=== PATIENT | male | born 1960 | race Hispanic/Latino ===

== ENCOUNTER 2018-02-28 02:00 | Emergency (ER) | payer SELFPAY ==
[2018-02-28 02:53] LABS: Absolute Neutrophil 3.7 K/uL (1.8-8.0); Basophils % 0.7 % (0-1.3); Eosinophils % 5.8 % (0-4.4); Hematocrit 39.3 % (39.6-49.0); Lymphocytes % 16.7 % (15.3-44.8); MCV 82.3 fL (80-100); MPV 7.7 fL (7.6-11.3); RBC Red Blood Cell Count 4.78 M/uL (4.33-5.43)
[2018-02-28 02:54] LABS: Protime INR 1.11
[2018-02-28 03:52] LABS: Potassium 4.2 mmol/L (3.5-5.1)
[2018-02-28 06:48] LABS: Urine Blood NEGATIVE (NEG); Urine Glucose NEGATIVE (NEG); Urine Protein NEGATIVE (NEG); Urine Specific Gravity 1.015 (1.005-1.030)
--- NOTE | 2018-02-28 07:04 | ER ---
Nurse's Notes [facility] Name: Cale Sinha Age: 57 yrs Sex: Male : 1960 Arrival Date: 02/28/2018 Time: 02:05 Bed 14 Private MD: Diagnosis: Chest pain, unspecified;Essential (primary) hypertension Presentation: 02/28 02:15 Presenting complaint: Patient states: chest pain to center of chest with nausea since ak1 2300. Transition of care: patient was not received from another setting of care. Onset of symptoms was February 27, 2018. Risk Assessment: Do you want to hurt yourself or someone else? Patient reports no desire to harm self or others. Initial Sepsis Screen: Does the patient meet any 2 criteria? No. Patient's initial sepsis screen is negative. Does the patient have a suspected source of infection? No. Patient's initial sepsis screen is negative. Care prior to arrival: None. 02:15 Method Of Arrival: Ambulatory ak1 02:15 Acuity: FLORENCIA 3 ak1 Triage Assessment: 02:17 General: Appears in no apparent distress. Behavior is calm, cooperative. Pain: ak1 Complains of pain in chest. EENT: No signs and/or symptoms were reported regarding the EENT system. Neuro: Level of Consciousness is awake, alert, obeys commands, Oriented to person, place, time, situation, Digital Printer are equal bilaterally Moves all extremities. Gait is steady, Speech is normal, Facial symmetry appears normal. Cardiovascular: Reports chest pain, nausea, Denies shortness of breath, vomiting. Respiratory: No deficits noted. GI: No signs and/or symptoms were reported involving the gastrointestinal system. : No signs and/or symptoms were reported regarding the genitourinary system. Derm: Skin is dry, Skin is pink, warm \T\ dry. Skin temperature is warm. Musculoskeletal: No signs and/or symptoms reported regarding the musculoskeletal system. Historical: - Allergies: 02:17 No Known Allergies; ak1 - Home Meds: 02:17 fenofibrate oral 145mg oral [Active]; lisinopril 10 mg Oral tab 1 tab once daily ak1 [Active]; - PMHx: 02:17 Hypertension; ak1 - PSHx: 02:17 None; ak1 - Immunization history:: Adult Immunizations unknown. - Social history:: Smoking status: Patient/guardian denies using tobacco. - Ebola Screening: : No symptoms or risks identified at this time. Screenin:19 Abuse screen: Denies threats or abuse. Denies injuries from another. Nutritional ak1 screening: No deficits noted. Tuberculosis screening: No symptoms or risk factors identified. Fall Risk None identified. Assessment: 02:18 Pain: Complains of pain in chest Pain does not radiate. Pain began 3 hours ago. ak1 02:26 General: Appears in no apparent distress. uncomfortable, Behavior is calm, cooperative, bs1 appropriate for age. Pain: Complains of pain in chest Pain does not radiate. Pain began 3 hours ago. Neuro: Level of Consciousness is awake, alert, obeys commands, Oriented to person, place, time, situation. Cardiovascular: Reports chest pain, Heart tones S1 S2 present Capillary refill < 3 seconds Patient's skin is warm and dry. Respiratory: Airway is patent Trachea midline Respiratory effort is even, unlabored, Respiratory pattern is regular, symmetrical, Breath sounds are clear bilaterally. GI: Abdomen is round non-distended, Bowel sounds present X 4 quads. Reports nausea. : No signs and/or symptoms were reported regarding the genitourinary system. EENT: No signs and/or symptoms were reported regarding the EENT system. Derm: Skin is intact. Musculoskeletal: Circulation, motion, and sensation intact. Capillary refill < 3 seconds, Range of motion: intact in all extremities. 03:45 Reassessment: No changes from previously documented assessment. Patient and/or family bs1 updated on plan of care and expected duration. Pain level reassessed. Patient is alert, oriented x 3, equal unlabored respirations, skin warm/dry/pink. Informed patient of POC/pending lab results. 04:45 Reassessment: Repeat troponin. bs1 05:20 Reassessment: Patient in CT. Reassessment: Patient back from CT, informed patient bs1 pending CT scan and repeat troponin. 06:05 Reassessment: Patient appears in no apparent distress at this time. Patient and/or bs1 family updated on plan of care and expected duration. Pain level reassessed. Patient is alert, oriented x 3, equal unlabored respirations, skin warm/dry/pink. 07:05 Reassessment: Report given to TRI[place]. bs1 07:07 General: Appears in no apparent distress. comfortable, Behavior is calm, cooperative. rb1 Pain: Denies pain. Neuro: Level of Consciousness is awake, alert, obeys commands, Oriented to person, place, time, situation. Cardiovascular: Capillary refill < 3 seconds is brisk in bilateral fingers. Respiratory: Airway is patent Respiratory effort is even, unlabored, Respiratory pattern is regular, symmetrical. GI: No signs and/or symptoms were reported involving the gastrointestinal system. : No signs and/or symptoms were reported regarding the genitourinary system. Derm: Skin is dry, Skin is normal, Skin temperature is warm. 07:10 Reassessment: Waiting for text results; discharge pending. rb1 08:00 Reassessment: Patient appears in no apparent distress at this time. No changes from rb1 previously documented assessment. Vital Signs: 02:17 BP 128 / 73; Pulse 66; Resp 18; Temp 98.3(O); Pulse Ox 99% on R/A; Weight 88.45 kg (R); ak1 Height 5 ft. 7 in. (170.18 cm) (R); Pain 4/10; 03:15 BP 123 / 83; Pulse 57; Resp 16 S; Pulse Ox 98% on R/A; bs1 04:15 BP 137 / 83; Pulse 54; Resp 16 S; Pulse Ox 99% on R/A; bs1 04:45 BP 151 / 92; Pulse 60; Resp 16; Pulse Ox 100% on R/A; bs1 05:36 BP 136 / 80; Pulse 58; Resp 16; Pulse Ox 99% on R/A; bs1 06:04 BP 127 / 82; Pulse 56; Resp 17; Pulse Ox 99% on R/A; bs1 07:00 BP 131 / 86; Pulse 51; Resp 13; Pulse Ox 100% on R/A; Pain 0/10; rb1 08:00 BP 126 / 96; Pulse 52; Resp 12; Pulse Ox 100% on R/A; rb1 02:17 Body Mass Index 30.54 (88.45 kg, 170.18 cm) ak1 ED Course: 02:05 Patient arrived in ED. al2 02:16 Triage completed. ak1 02:17 Arm band placed on Patient placed in an exam room, on a stretcher, on radiation monitor, ak1 on pulse oximetry, Patient notified of wait time. EKG completed in triage. Results shown to MD. 02:19 Patient has correct armband on for positive identification. Placed in gown. Bed in low ak1 position. Call light in reach. Side rails up X 1. Adult w/ patient. media monitor on. Pulse ox on. NIBP on. 02:19 Patient maintains SpO2 saturation greater than 95% on room air. ak1 02:22 Flash Espinoza MD is Attending Physician. 02:26 Kerry Munroe, RN is Primary Nurse. bs1 02:29 Initial lab(s) drawn, by me, held in ED. Inserted saline lock: 20 gauge in right ks6 antecubital area, using aseptic technique. Blood collected. 02:49 X-ray completed. Portable x-ray completed in exam room. Patient tolerated procedure kp1 well. 02:51 XRAY Chest (1 view) In Process Unspecified. EDMS 05:[address] via stretcher. kw1 05:18 CT completed. Patient tolerated procedure well. Patient moved back from CT. kw1 05:20 CT Chest For PE Angio In Process Unspecified. EDMS 07:03 Justin Chang MD is Referral Physician. gs 08:05 No provider procedures requiring assistance completed. IV discontinued, intact, rb1 bleeding controlled, No redness/swelling at site. Pressure dressing applied. Administered Medications: No medications were administered Outcome: 07:03 Discharge ordered by MD. gs 08:05 Patient left the ED. rb1 08:05 Discharged to home ambulatory. rb1 08:05 Condition: stable 08:05 Discharge instructions given to patient, Instructed on discharge instructions, follow up and referral plans. Demonstrated understanding of instructions, follow-up care, Prescriptions given X none Signatures: Dispatcher [employer] EDIN Shannan Diza RN RN ak1 Valencia Barrera RN RN rb1 Angely Mares kp1 Flash Espinoza MD MD Verenice Farmer kw1 Kerry Munroe, RN RN bs1 Viktoriya Murray Kyle ks6 Corrections: (The following items were deleted from the chart) 08:25 08:17 Patient left the ED. rb1 rb1
--- NOTE | 2018-02-28 07:04 | EDPHYS ---
Physician Documentation [facility] Name: Cale Sinha Age: 57 yrs Sex: Male : 1960 Arrival Date: 02/28/2018 Time: 02:05 Bed 14 Private MD: ED Physician Flash Espinoza HPI: 02/28 06:11 This 57 yrs old Male presents to ER via Ambulatory with complaints of Chest gs Pain. 06:11 The patient or guardian reports chest pain that is located primarily in the anterior gs chest wall. Onset: just prior to arrival, 2 hour(s) ago. 06:12 The pain does not radiate. Associated signs and symptoms: Pertinent negatives: gs shortness of breath. The chest pain is described as a heaviness. Duration: The patient or guardian reports multiple episodes, that wax and wane, with no pattern. Modifying factors: the symptoms are aggravated by nothing. Severity of pain: At its worst the pain was moderate in the emergency department the pain has improved markedly. The patient has experienced similar episodes in the past, a few times. Historical: - Allergies: 02:17 No Known Allergies; ak1 - Home Meds: 02:17 fenofibrate oral 145mg oral [Active]; lisinopril 10 mg Oral tab 1 tab once daily ak1 [Active]; - PMHx: 02:17 Hypertension; ak1 - PSHx: 02:17 None; ak1 - Immunization history:: Adult Immunizations unknown. - Social history:: Smoking status: Patient/guardian denies using tobacco. - Ebola Screening: : No symptoms or risks identified at this time. ROS: 06:12 All other systems are negative. gs Exam: 06:12 Head/Face: Normocephalic, atraumatic. Eyes: Pupils equal round and reactive to light, gs extra-ocular motions intact. Lids and lashes normal. Conjunctiva and sclera are non-icteric and not injected. Cornea within normal limits. Periorbital areas with no swelling, redness, or edema. ENT: Nares patent. No nasal discharge, no septal abnormalities noted. Tympanic membranes are normal and external auditory canals are clear. Oropharynx with no redness, swelling, or masses, exudates, or evidence of obstruction, uvula midline. Mucous membranes moist. Neck: Trachea midline, no thyromegaly or masses palpated, and no cervical lymphadenopathy. Supple, full range of motion without nuchal rigidity, or vertebral point tenderness. No Meningismus. Chest/axilla: Normal chest wall appearance and motion. Nontender with no deformity. No lesions are appreciated. Cardiovascular: Regular rate and rhythm with a normal S1 and S2. No gallops, murmurs, or rubs. Normal PMI, no JVD. No pulse deficits. Respiratory: Lungs have equal breath sounds bilaterally, clear to auscultation and percussion. No rales, rhonchi or wheezes noted. No increased work of breathing, no retractions or nasal flaring. Abdomen/GI: Soft, non-tender, with normal bowel sounds. No distension or tympany. No guarding or rebound. No evidence of tenderness throughout. Back: No spinal tenderness. No costovertebral tenderness. Full range of motion. Skin: Warm, dry with normal turgor. Normal color with no rashes, no lesions, and no evidence of cellulitis. MS/ Extremity: Pulses equal, no cyanosis. Neurovascular intact. Full, normal range of motion. Neuro: Awake and alert, GCS 15, oriented to person, place, time, and situation. Cranial nerves II-XII grossly intact. Motor strength 5/5 in all extremities. Sensory grossly intact. Cerebellar exam normal. Normal gait. 06:12 Constitutional: The patient appears alert, awake. 06:12 ECG was reviewed by the Attending Physician. Vital Signs: 02:17 BP 128 / 73; Pulse 66; Resp 18; Temp 98.3(O); Pulse Ox 99% on R/A; Weight 88.45 kg (R); ak1 Height 5 ft. 7 in. (170.18 cm) (R); Pain 4/10; 03:15 BP 123 / 83; Pulse 57; Resp 16 S; Pulse Ox 98% on R/A; bs1 04:15 BP 137 / 83; Pulse 54; Resp 16 S; Pulse Ox 99% on R/A; bs1 04:45 BP 151 / 92; Pulse 60; Resp 16; Pulse Ox 100% on R/A; bs1 05:36 BP 136 / 80; Pulse 58; Resp 16; Pulse Ox 99% on R/A; bs1 06:04 BP 127 / 82; Pulse 56; Resp 17; Pulse Ox 99% on R/A; bs1 07:00 BP 131 / 86; Pulse 51; Resp 13; Pulse Ox 100% on R/A; Pain 0/10; rb1 08:00 BP 126 / 96; Pulse 52; Resp 12; Pulse Ox 100% on R/A; rb1 02:17 Body Mass Index 30.54 (88.45 kg, 170.18 cm) [facility] MDM: 02:30 Patient medically screened. 06:12 Differential diagnosis: acute myocardial infarction, coronary artery disease chest wall gs pain, pulmonary embolus, thoracic aortic disection. Data reviewed: vital signs, nurses notes. 02/28 02:32 Order name: Basic Metabolic Panel; Complete Time: 03:55 02/28 02:32 Order name: CBC with Diff; Complete Time: 03:55 02/28 02:32 Order name: NT PRO-BNP; Complete Time: 03:55 02/28 02:32 Order name: PT-INR; Complete Time: 03:55 02/28 02:32 Order name: Troponin (emerg Dept Use Only); Complete Time: 03:55 02/28 03:57 Order name: Troponin I; Complete Time: 06:06 02/28 02:20 Order name: EKG; Complete Time: 02:20 [facility] 02/28 02:20 Order name: EKG - Nurse/Tech; Complete Time: 02:20 [facility] 02/28 02:32 Order name: XRAY Chest (1 view) 02/28 02:32 Order name: Cardiac monitoring; Complete Time: 02:34 02/28 02:32 Order name: IV Saline Lock; Complete Time: 02:34 02/28 02:32 Order name: Labs collected and sent; Complete Time: 02:34 02/28 03:57 Order name: CT Chest For PE Angio 02/28 07:02 Interpretation: No acute disease. 02/28 06:12 Order name: Urine Dipstick--Ancillary (enter results); Complete Time: 07:02 fl 02/28 02:32 Order name: O2 Per Protocol; Complete Time: 02:34 02/28 02:32 Order name: O2 Sat Monitoring; Complete Time: 02:34 02/28 02:32 Order name: Urine Dipstick-Ancillary (obtain specimen); Complete Time: 05:37 EC:12 Rate is 62 beats/min. Rhythm is regular. OR interval is normal. QRS interval is normal. gs No Q waves. T waves are Peaked. No ST changes noted. Clinical impression: Abnormal EKG without significant change. Interpreted by me. Administered Medications: No medications were administered Disposition: 02/28/18 07:03 Discharged to Home. Impression: Chest pain, unspecified, Essential (primary) hypertension. - Condition is Stable. - Discharge Instructions: Nonspecific Chest Pain, Managing Your Hypertension. - Work release form, Medication Reconciliation Form, Thank You Letter, Antibiotic Education, Prescription Opioid Use form. - Follow up: Justin Chang MD; When: 2 - 3 days; Reason: Re-evaluation by your physician. Signatures: Dispatcher [employer] EDMS Shannan Diaz RN RN ak1 Valencia Barrera RN RN rb1 Flash Espinoza MD MD gs Corrections: (The following items were deleted from the chart) 08:17 07:03 02/28/2018 07:03 Discharged to Home. Impression: Chest pain, unspecified; rb1 Essential (primary) hypertension. Condition is Stable. Forms are Medication Reconciliation Form, Thank You Letter, Antibiotic Education, Prescription Opioid Use. Follow up: Justin Chang; When: 2 - 3 days; Reason: Re-evaluation by your physician. gs
--- NOTE | 2018-02-28 09:27 | RAD REPORT ---
EXAM DESCRIPTION: CT - Chest For Pe Angio - 02/28/2018 7:12 am CLINICAL HISTORY: Chest pain COMPARISON: None. TECHNIQUE: Dynamically enhanced axial 3 mm thick images of the chest were obtained during administra tion of <100> mL Isovue 370 IV contrast. Coronal and oblique reconstruction images were generated and reviewed. Exam utilizes a protocol for optimal evaluation of pulmonary arterial tree. Maximum intensity projections 3D imaging was utilized All CT scans are performed using dose optimization technique as appropriate and may include automated exposure control or mA/KV adjustment according to patient size. FINDINGS: A pulmonary embolus is not seen. A thoracic aortic aneurysm is not noted. A pleural effusion is not seen. A pericardial effusion is not seen. A lung consolidation is not present. A tiny low-density lesion within the dome of the liver is too sm all to accurately characterize by CT. IMPRESSION: Negative for a pulmonary embolism.
--- NOTE | 2018-02-28 09:37 | RAD REPORT ---
EXAM DESCRIPTION: Kemi Single View02/28/2018 2:51 am CLINICAL HISTORY: Chest pain COMPARISON: none FINDINGS: The lungs appear clear of acute infiltrate. The heart is mildly enlarged IMPRESSION: No acute abnormalities displayed
--- NOTE | 2018-02-28 12:14 | EKG ---
Test Date: 2018-02-28 Test Time: 02:11:17 Check Clerk: ARCHIE MEASUREMENT RESULTS: Intervals: Rate: 62 NC: 154 QRSD: 74 QT: 384 QTc: 389 [place]: P: 21 NC: 154 QRS: 36 T: 23 INTERPRETIVE STATEMENTS: Normal sinus rhythm Normal ECG No previous ECG available for comparison Electronically Signed On 02-28-18 12:11:53 CDT by Joselito Simon
== END 2018-02-28 08:17 | disposition home or self-care (01) ==
LOC: ER 02:00
DX: I10 Essential (primary) hypertension (principal)
CPT/HCPCS: 36415; 71045; 71275; 80048; 81003; 83880; 84484; 85025; 85610; 93005; 99285; Q9967